=== PATIENT | male | born 2005 | race Two or more races ===

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

== ENCOUNTER 2025-05-05 16:21 | Emergency (ER) | payer MEDICAID, SELFPAY ==
[2025-05-05 16:23] VITALS: BMI 28.8
[2025-05-05 17:29] VITALS: BP 124/79; PULSE 79; RESP 18; TEMP 36.6; O2SAT 97
--- NOTE | 2025-05-05 17:51 | XR_ITS ---
Examination: Abdomen AP single view Technique: AP portable supine abdomen, single view Exam date and time: May 05, 2025, 1751 hrs. Indications: Constipation 3 days Findings: Moderate to large amounts of stool throughout the colon. No obstruction. No free air. Impression: Moderate to large amounts of stool throughout the colon
--- NOTE | 2025-05-05 17:52 | PD.EDRME ---
Rapid Medical Screening Exam [facility] Arrival date/time: 05/05/25 16:21 This is a 20-year-old male that comes into the emergency room with complaints of abdominal pain and rectal pain. Patient states that he was seen by his primary doctor and was told that if the pain got worse to come to the emergency room. Patient states that he initially never had abdominal pain that is new. Patient was having rectal pain. Patient states that he feels constipated and it hurts when he has a bowel movement. Today's patient states that he started having abdominal pain and some nausea. Patient denies any anal sex. Patient denies any urinary symptoms. I have greeted and performed a focused initial assessment of this patient. Initial appropriate labs ordered at this time. A comprehensive ED assessment and evaluation of the patient and analysis of all test and completion of medical decision making process will be conducted by additional ED provider. Chief Complaint: General Adult/Misc Complain Time Seen by Provider: 05/05/25 17:36 Vital signs: Vital Signs Temperature 97.9 F 05/05/25 17:29 Pulse Rate 79 05/05/25 17:29 Respiratory Rate 18 05/05/25 17:29 Blood Pressure 124/79 05/05/25 17:29 Pulse Oximetry (%) 97 05/05/25 17:29 Oxygen Delivery Method Room Air 05/05/25 17:29
[2025-05-05 18:15] LABS: Basophils # (Auto) 0.1 Thou/mm3 (0.0-0.2); Basophils % (Auto) 1 % (0-2.5); Eosinophils # (Auto) 0.1 Thou/mm3 (0.0-0.5); Eosinophils % (Auto) 2 % (0-10); Hematocrit 46.5 % (41.0-53.0); Hemoglobin 15.4 g/dL (13.5-16.0); Immature Granulocytes Auto 0.03 Thou/mm3 (0.00-0.00); Lymphocytes # (Auto) 2.9 Thou/mm3 (1.0-4.8); Lymphocytes % (Auto) 33 % (10-50); Mean Corpuscular HGB Conc 33.1 g/dl (31.0-37.0); Mean Corpuscular Hemoglobin 29.4 pg (25.0-35.0); Mean Corpuscular Volume 89 fL (80-100); Monocytes # (Auto) 0.5 Thou/mm3 (0.0-0.8); Monocytes % (Auto) 6 % (0-12); Neutrophils # (Auto) 5.3 Thou/mm3 (1.8-7.7); Neutrophils % (Auto) 59 % (37-80); Nucleated Red Blood Cell # 0.00 Thou/mm3 (0.00-0.00); Nucleated Red Blood Cell % 0 /100 WBC (0); Platelet Count 204 Thou/mm3 (140-440); RDW Standard Deviation 41.6 fL (35.1-43.9); Red Blood Count 5.24 Miln/mm3 (4.50-5.90); White Blood Count 9.0 Thou/mm3 (4.5-11.0)
[2025-05-05 18:49] LABS: Collection Type, Urine Voided; Squamous Epithelial Cell,Urine 0 /hpf (0-5); WBC,Urine 0 /hpf (0-5)
[2025-05-05 19:15] LABS: Amphetamine/Methamp Scrn,U Negative (Negative); Barbiturate Screen,Urine Negative (Negative); Benzodiazepines Screen,Urine Negative (Negative); Benzoylecgonine Screen, Ur Negative (Negative); Fentanyl Screen,Urine Negative (Negative); Opiate Screen,Urine Negative (Negative); THC Screen,Urine Negative (Negative)
[2025-05-05 19:27] LABS: Bilirubin,Urine Negative (Negative); Blood,Urine Negative (Negative); Clarity,Urine Clear (Clear/Hazy); Color,Urine Lt-Yellow (Lt Yel-Yel); Culture Indicated,Urine Not Indicated; Glucose, Urine Negative (Negative); Ketones,Urine Negative (Negative); Leukocyte Esterase,Urine Negative (Negative); Nitrite,Urine Negative (Negative); PH,Urine 6.0 (5.0-7.0); Protein,Urine Negative (Neg - Trace); RBC,Urine < 1 /hpf (0-3); Specific Gravity,Urine 1.029 (1.001-1.035); Urobilinogen,Urine Negative mg/dL (0.0-1.0)
--- NOTE | 2025-05-05 21:09 | PD.EDADULT ---
ED General RME/HPI General Chief complaint: General Adult/Misc Complain Stated complaint: PAIN TO RECTUM FOR 4 WEEKS, ABD PAIN TODAY Time Seen by Provider: 05/05/25 17:36 Arrival date/time: 05/05/25 16:21 CC: Rectal pain abdominal pain HPI ongoing on since today no prior history of similar events states he has a bowel movement usually every 2 days. Patient denies fever rectal bleeding nausea vomiting or diarrhea. Patient states he feels like he is constipated RME / HPI RME / HPI narrative: 05/05/25 16:21 This is a 20-year-old male that comes into the emergency room with complaints of abdominal pain and rectal pain. Patient states that he was seen by his primary doctor and was told that if the pain got worse to come to the emergency room. Patient states that he initially never had abdominal pain that is new. Patient was having rectal pain. Patient states that he feels constipated and it hurts when he has a bowel movement. Today's patient states that he started having abdominal pain and some nausea. Patient denies any anal sex. Patient denies any urinary symptoms. I have greeted and performed a focused initial assessment of this patient. Initial appropriate labs ordered at this time. A comprehensive ED assessment and evaluation of the patient and analysis of all test and completion of medical decision making process will be conducted by additional ED provider. Related Data Previous Rx's ?Medication ?Instructions ?Recorded hydrocortisone acetate 25 mg 25 mg [place] BID #12 ea 10/10/24 rectal suppository (Anusol-HC) polyethylene glycol 3350 17 4 g PO QDAY #10 packets 05/05/25 gram/dose oral powder (Miralax) Allergies Allergy/AdvReac Type Severity Reaction Status Date / Time No Known Allergies Allergy Verified 05/05/25 16:26 Review of Systems Review of Systems Narrative Review of Systems: GEN: No fever, no chills, no weight loss EYES: No discharge, no visual changes, no pain HEENT: No ear pain, no congestion, no sore throat PULM: No shortness of breath, no cough, no congestion CV: No chest pain, no dyspnea on exertion, no palpitations GI: No nausea, no vomiting, no diarrhea, + pain, no constipation : No frequency, no urgency, no dysuria MUSC/SKEL: No joint pain, no back pain SKIN: No rash PSYCH: No hallucinations, no depression HEME/LYMPH: No easy bleeding or bruising tendencies NEURO: No weakness, no headache ED Exam Narrative Physical exam: [General: Not in any acute distress Head normocephalic HEENT: Within acceptable limits Neck is supple nontender Chest equal chest rise nontender to palpation Respiratory: Clear to auscultation no wheezes crackles or rubs CV: Rate rhythm is regular no murmurs rubs or clicks Abdomen is soft nontender no masses positive bowel sounds all 4 quadrants Back: No CVA tenderness no spinous process tenderness from cervical spine thoracic and lumbar spine Skin: Intact no petechiae rash induration ulceration or crepitus Extremities: Moving all extremity against resistance cap refill less than 2 seconds neurosensory intact Neuro: Awake alert oriented x3 Glascow coma 15 no focal deficits] Course Quality Measures none Orders Category Date Time Status KUB [XR abdomen 1V] Stat Exams 05/05/25 17:51 Completed CBC Stat Lab 05/05/25 18:02 Completed Comprehensive Metabolic Panel Stat Lab 05/05/25 18:02 Received Drug Screen,Urine Stat Lab 05/05/25 18:25 Completed Lipase Stat Lab 05/05/25 18:02 Received Urinalysis, C/S if Indicated Stat Lab 05/05/25 18:25 Completed Vital Signs Vital signs: Vital Signs Temperature 97.9 F 05/05/25 17:29 Pulse Rate 79 05/05/25 17:29 Respiratory Rate 18 05/05/25 17:29 Blood Pressure 124/79 05/05/25 17:29 Pulse Oximetry (%) 97 05/05/25 17:29 Oxygen Delivery Method Room Air 05/05/25 17:29 Discharge Plan Plan Patient Disposition: HOME (Self Care) Patient condition on transfer: Stable Prescriptions/Referrals Prescriptions/Med Rec: New polyethylene glycol 3350 [Miralax] 17 gram/dose powder 4 g PO QDAY Qty: 10 0RF No Action hydrocortisone acetate [Anusol-HC] 25 mg suppository 25 mg ME BID Qty: 12 0RF Referrals: Jimmy Wood MD [Primary Care Provider, Family Practice] - In 1 week Problem List Clinical Impression: Constipation, Abdominal pain Patient/Caregiver Discharge Instructions Education Materials: Abdominal Pain, ED Constipation (Adult) Additional Instructions: Take ibuprofen or Tylenol for pain use the medication above described for the constipation avoid processed foods eat plenty of fruits and vegetables drink plenty of water avoid sodas. Follow-up with your primary care doctor. Print Language: Libyan Stand Alone Forms: Isabella Award Info., Patient Portal Info Letter, Work/School Release PA/SANTIAGO Supervising Physician BERNARD/SANTIAGO Supervising Physician: Jeff Walton ENP MDM Clinical Information Provided by patient Medical Records Reviewed [facility] Meds/Rx Considered, not Ordered None Labs/Rad/Tests considered, not Ordered None Chronic Illness/Social Conditions which may negatively complicate care or outcome(s)-explain: None or not applicable EKG EKG not done Lab Interpretation Lab(s) interpretation(s): CBC shows no acute leukocytosis anemia thrombocytopenia Urine is negative. UDS is negative Imaging Provider imaging interpretation(s): Imaging as interpreted by me read by radiology shows a large amount of stool Medication Administration(s) none Diagnosis Differential diagnosis: Ileus obstipation constipation Most likely dx, and/or detailed dx discussion: Constipation Dispositon Disposition: Discharge Home
[2025-05-05 22:03] LABS: Alanine Aminotransferase 22 U/L (10-49); Albumin, Serum 5.0 gm/dL (3.5-5.0); Anion Gap 10 (7-16); Aspartate Amino Transferase 15 U/L (0-34); BUN/Creatinine Ratio 14 Ratio (12-20); Bilirubin,Total 0.7 mg/dL (0.3-1.2); Blood Urea Nitrogen 13 mg/dL (9-23); Calcium 9.8 mg/dL (8.3-10.6); Calcium (Corrected) 9.8 mg/dL (8.5-10.1); Carbon Dioxide 28.7 mMol/L (20.0-31.0); Chloride 103 mMol/L (98-107); Creatinine (Component) 0.9 mg/dL (0.6-1.3); Estimated Creatinine Clearance 139.8 mL/min (>60); Globulin 2.6 gm/dL (2.3-3.5); Glucose 93 mg/dL (74-106); Osmolality,Calculated 283 (275-295); Potassium 4.1 mMol/L (3.4-5.1); Sodium 142 mMol/L (136-145); Total Protein 7.6 gm/dL (5.7-8.2); eGFR > 60 See Note
[2025-05-05 22:04] LABS: Albumin/Globulin Ratio 1.9 (1.2-2.2); Alkaline Phosphatase 72 U/L (46-116); Lipase 29 U/L (12-53)
== END 2025-05-05 21:18 | disposition home or self-care (01) ==
PROVIDERS: Emergency Provider Nurse Practitioner Family; PCP Family Medicine
DX: K59.00 Constipation, unspecified (principal); R10.9 Unspecified abdominal pain
CPT/HCPCS: 36415; 74018; 80053; 80307; 81001; 83690; 85025; 99283